=== PATIENT | female | born 1950 | race American Indian/Alaskan Native ===

== ENCOUNTER → 2020-04-17 10:56 | Outpatient (BNVA) | payer MEDICARE, OTHER, SELFPAY | PROVIDERS: Visit Provider Orthopaedic Surgery | DX: M48.061 Spinal stenosis, lumbar region without neurogenic claudication (principal); Z96.643 Presence of artificial hip joint, bilateral | CPT/HCPCS: 99214 ==

== ENCOUNTER 2022-06-11 11:40 | Outpatient (CLI) | payer MEDICARE, OTHER, SELFPAY ==
--- NOTE | 2022-06-11 10:52 | DI.RAD_ITS ---
Exam(s) XR HIP RT 1V XR HIP LT COMPLETE AP PELVIS EXAM: XR HIP RT 1V CLINICAL HISTORY: follow up. TECHNIQUE: 2D digital imaging was performed. Three views COMPARISON: CR PELVIS AP from 06/25/2016 CR XR HIP LT COMPLETE AP PELVIS from 06/11/2022 FINDINGS: There has been no change in the alignment of the bilateral total hip prostheses or appearance of the surrounding bone. DATA REPOSITORY: RADIATION DOSE DELIVERED:
== END 2022-06-11 11:41 | disposition home or self-care (01) ==
LOC: DIORS 11:43
PROVIDERS: Visit Provider Physician Assistant Surgical
DX: Z96.641 Presence of right artificial hip joint (principal); Z96.642 Presence of left artificial hip joint
CPT/HCPCS: 99214; 73501; 73502